=== PATIENT | female | born 1985 ===

== ENCOUNTER 2017-07-01 07:09 | Inpatient (IN) | payer BC ==
--- NOTE | 2017-07-01 07:29 | OBHP ---
Datetime: 07/01/2017 07:23 IP Adm Impression: Term, intrauterine IP Admit Plan: Admit to unit Admit Comment, IP Provider: @ 39 wks IUI c/o of lof last night, dneis any big gush, d nies vb, wth decreased movmenets x 1 week. Pt reprots ctx crampign pain every 10 min increasing intensity in frequency. 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: Denies hx of abnormla pap, fibroids, ovarian cyst, STI PMH: Umbilical hernia PSH: Denies FHX: non contributory SHX: negative etoh/tobacco/drugs MEDS: PNV A/P @ 39 wks GA IOL For oligohyramnios -admit to L+D -npo, ivf -admission labs -Cervisil -Cont toco and efm -pain manamgnet prn Pelvic Type - PN: Adequate Extremities - PN: Normal Abdomen - PN: Normal Back - PN: Normal Breast - PN: Not Done Lungs - PN: Normal Heart - PN: Normal Thyroid - PN: Not Done Neurologic - PN: Normal HEENT - PN: Normal General - PN: Normal Presentation-Admit: Vertex FHR - Baseline A Provider: 150 Membranes, Provider: Intact Contraction Comments Provider: irregular Comments, ACOG Physical Exam: negatiave pooling, nitrazine ferning Bedside US: vtx, LEYLA 4cm, BPP 6/8 Gestation - Est Wks by US: 39.0 IP Hx Assessment: The History has been Reviewed and is Current EGA AdmitDate IP: 39.0 Vital Signs Provider: Reviewed IP Indication for Induction: Oligohydramnios IP Chief Complaint: Suspected ruptured membranes NICHD Variability Prov Fetus A: Moderate 6-25bpm FHR Category Provider Fetus A: Category I NICHD Decel Fetus A IP Provider: None Dilatation, Provider: 0 Effacement, Provider: 30 Station, Provider: -3 Genitourinary Exam: Normal DTRs - PN: Normal
[2017-07-01] MEDS ORDERED: Lactated Ringer's 1,000 ML IV SCH (07:45)
[2017-07-01 08:17] LABS: BASO % 0.4 % (0.0-2.0); EOS # 0.2 K/uL (0.0-0.7); EOS % 1.4 % (0.0-4.0); HEMOGLOBIN 12.8 g/dL (11.0-16.0); LYMPH # 1.5 K/uL (1.0-4.3); LYMPH % 12.4 % (20.0-40.0); MEAN CELL VOLUME 89.4 fL (81.0-99.0); MEAN CORPUSCULAR HGB CONC 34.6 g/dL (33.0-37.0); MEAN PLATELET VOLUME 10.7 fL (7.2-11.7); MONO # 1.1 K/uL (0.0-0.8); MONO % 8.7 % (0.0-10.0); NEUT # 9.6 K/uL (1.8-7.0); NEUT % 77.1 % (50.0-75.0); NRBC % 0.1 % (0.0-2.0); RBC 4.14 Mil/uL (3.80-5.20); RED CELL DISTRIBUTION WIDTH 13.9 % (11.5-14.5); WHITE BLOOD COUNT 12.4 K/uL (4.8-10.8)
[2017-07-01] MEDS ORDERED: ePHEDrine 50 mg/ml Inj ONE (08:28)
[2017-07-01 08:38] LABS: SQUAMOUS EPITHIAL 1 /hpf (0-5); URINE BACTERIA OCC (<OCC); URINE BILIRUBIN NEGATIVE (NEGATIVE); URINE BLOOD NEGATIVE (NEGATIVE); URINE CLARITY Hazy (Clear); URINE COLOR Yellow (YELLOW); URINE GLUCOSE (UA) NORMAL (Normal); URINE LEUKOCYTE ESTERASE 1+ Leu/uL (Negative); URINE NITRATE NEGATIVE (NEGATIVE); URINE PROTEIN NEGATIVE (NEGATIVE); URINE UROBILINOGEN NORMAL mg/dL (0.2-1.0)
[2017-07-01] MEDS ORDERED: Bupivacaine HCl 0.25% PF (10 ml) Inj ONE (11:54)
[2017-07-01] MEDS ORDERED: Bupivacaine HCl/FentaNYL Cit 100 ML EPI ONE (11:55)
--- NOTE | 2017-07-01 14:54 | OBPN ---
Datetime: 07/01/2017 14:49 IP Progress Impression: Non-reassuring heart rate IP Progress Plan: Continue present management Membranes, Provider: Ruptured Contraction Comments Provider: q 2-5 m in FHR - Baseline A Provider: 150 Gestation - Est Wks by US: 39.0 Presentation-Admit: Vertex IP Progress Note Comment: pt seen and examiend after prolonged declienration x 5 minutes. pt dnies a ny pain, lof, vb, +FM, s/p epidural EFM: 150 mod kody/ prlonged 5 minute decerlation with spontanous reutrn to baseline 165pm Plan cervidil removed f/u vs, bp, temp IVH, Oxygen, Left lateral decumbituls position close observatoin FHR Category Provider Fetus A: Category II NICHD Variability Prov Fetus A: Moderate 6-25bpm Dilatation, Provider: 1 Effacement, Provider: 30 Station, Provider: -3 NICHD Decel Fetus A IP Provider: None Datetime: 07/01/2017 07:23 Vital Signs Provider: Reviewed
[2017-07-01] MEDS ORDERED: Oxytocin 30 UNIT 30 UNITS/500 ML BAG IV SCH (16:00)
[2017-07-01] MEDS ORDERED: Oxytocin 30 UNIT 30 UNITS/500 ML BAG IV ONE (16:10)
[2017-07-01] MEDS ORDERED: ceFAZolin IV 2 gm in Dextrose 2 GM/50 ML BAG IVPB ONE (18:20)
[2017-07-01] MEDS ORDERED: Sodium Citrate/Citric Acid 15 ml Sol ONE (18:21)
[2017-07-01] MEDS ORDERED: Sodium Citrate/Citric Acid 15 ml Sol PO ONE ×2 (18:30)
[2017-07-01] MEDS ORDERED: ceFAZolin IV 2 gm in Dextrose 2 GM/50 ML BAG IVPB SCH (18:30)
--- NOTE | 2017-07-01 18:31 | OBPN ---
Datetime: 07/01/2017 18:26 IP Progress Impression: Non-reassuring heart rate IP Informed Consent Obtain: Section Delivery IP Progress Plan: Deliver- Section Membranes, Provider: Ruptured FHR - Baseline A Provider: 170 Gestation - Est Wks by US: 39.0 Presentation-Admit: Vertex IP Progress Note Comment: pt seen and examiend, pt dnie ay pain ctx, +FM Pt reprots some vaignal discharge with small leakage that she thougt was discharbe ove rpats 1-2 d ays. Temp: 100.8 VS see above VE: 06/06/-3, vtx EFM: Cat II late decleration with tachcyardia TOCO: q 5 min Wes icn 6mu- discontinued A/P @ 39 wks GA with rodolfo II tracing remote from lou -pt félix ivh -teyonol -oxygen, left latearl decubtiur postion -r/b/a/i pltcs dw patietn not mtied to bleeding infection, consnt obtained -software quality automation engineer to or, antibisvc, goldman to graivty, scds, Vital Signs Provider: Reviewed Vital Signs Provider Details: 100.8 FHR Category Provider Fetus A: Category II NICHD Variability Prov Fetus A: Moderate 6-25bpm Dilatation, Provider: 1 Effacement, Provider: 30 Station, Provider: -3 NICHD Decel Fetus A IP Provider: Early
[2017-07-01] MEDS ORDERED: Sodium Bicarbonate (8.4%) 50 Meq Syringe ONE ×2 (18:32→18:38)
[2017-07-01] MEDS ORDERED: Oxytocin 10 Units/ml Inj ONE (19:33)
[2017-07-01] MEDS ORDERED: Midazolam 2 MG/2 ML VIAL ONE ×2 (19:36→19:45)
[2017-07-01] MEDS ORDERED: Propofol 10 mg/ml Inj (20 ML) ONE (19:54)
[2017-07-01] MEDS ORDERED: Ketamine 50 mg/ml Inj (10 ml) ONE (19:55)
--- NOTE | 2017-07-01 20:07 | OBDS ---
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 Babies in Womb: 1 (Annotations: Data stored by [facility] on behalf of user) Attempted: No Labor Anesthesia: Epidural LABOR INFORMATION Cervical Ripening Agents: Cervidil Other Ripening Agents: cervidal removed by dr appiah Oxytocin: Induction Group B Beta Strep: Negative Antibiotics # of Doses: 1 Antibiotics Time of Last Dose: 1830 Steroids Given: None Reason Steroids Not Administered: Not Applicable VAGINAL DELIVERY Episiotomy: None Laceration Extension: N/A Laceration Type: None CSECTION DELIVERY Primary Indication: Nonreassuring Status CSection Urgency: Emergency CSection Incidence: Primary Labor: Labor Elective: Nonelective CSection Incision: Lower Uterine Transverse BABY A INFORMATION Method of Delivery: Born in Route : No : N/A Forceps: N/A PRESENTATION/POSITION BABY A Presentation: Cephalic Cephalic Presentation: Vertex Vertex Position: Right Occipital Posterior Breech Presentation: N/A INFANT INFORMATION BABY A Gestational Age at Delivery: 39.0 Gestational Status: Term IDENTIFICATION/MEDS BABY A ID Band Number: [id number] ID Band Location: Left Leg; Left Arm Sensor Applied: Yes Sensor Number: [id number] Sensor Location : Cord Clamp WEIGHT/LENGTH BABY A Infant Birthweight (gms): 3115 Infant Weight (lb): 6 Infant Weight (oz): 14 Length Inches: 18.75 Infant Length cms: 47.6
[2017-07-01] MEDS ORDERED: Oxycodone/Acetaminophen 5/325 mg Tab PO PRN ×3 (20:10→21:00)
--- NOTE | 2017-07-01 20:10 | PCM.SURG1 ---
Surgeon's Initial Post Op Note - Surgeon's Notes Surgeon: Melissa Broines MD Service Crew Supervisor: Gerald Avina MD Type of Anesthesia: Other Anesthesia Administered By: Epidural Dr Hein Pre-Operative Diagnosis: Term Intrauterin , Category II tracing, remote from delivery Operative Findings: Live female infnat, apgars 9,9 weight of 6lbs 1 4ounces, normal appeairn guteurs, tubes and ovaries b/l. Pt with double tihgt nuchal and body x 1. pediatirican prsent for delivery. Dr Gerald Avina was surgical assistnat and present for entire case and essential in gainign entry, retraction , epxoures, holidng, bladder blade, helpign to deliveyr , closing all layers Post-Operative Diagnosis: same as above Operation Performed: Primary Low transverse cesearen section Specimen/Specimens Removed: placenta Estimated Blood Loss: EBL {In ML}: 800 Blood Products Given: N/A Drains Used: No Drains Post-Op Condition: Good Date of Surgery/Procedure: 07/01/17 Time of Surgery/Procedure: 19:30
[2017-07-01] MEDS ORDERED: HYDROmorphone 0.5 mg/0.5 ml ISec IVP PRN (20:32)
[2017-07-02] MEDS: ceFAZolin 1 GM in Sodium Chloride 0.9% 100 ML IVPB SCH ×3 (02:00→17:29)
--- NOTE | 2017-07-02 07:31 | OP ---
PROCEDURE DATE: 07/01/2017 SURGEON: Dr. Melissa Briones POLICE SHIFT COMMANDER: Gerald Avina MD TYPE OF ANESTHESIA: Epidural by Nirmal Mejia DO PREOPERATIVE DIAGNOSIS: Term intrauterine , category II tracing, remote from delivery. OPERATIVE FINDINGS: Live female infant, Apgars 9 and 9, weight is 6 pounds 14 ounces, normal-appearing uterus, tubes, and ovaries bilaterally. There was tight nuchal cord x2 and around body x1. Dr. Gerald Avina, the surgical services asst, was present for the entire case, and was essential in gaining entry, retraction, exposure, holding the bladder blade, delivering the infant, closing all layers. POSTOPERATIVE DIAGNOSIS: Term intrauterine , category II tracing, remote from delivery. OPERATION PERFORMED: Primary low transverse section. SPECIMEN REMOVED: Placenta. ESTIMATED BLOOD LOSS: 80 mL. BLOOD PRODUCTS: None. COMPLICATIONS: None. PROCEDURE: The patient is a 32-year-old G1, P0 at 39 weeks with oligohydramnios set with induction of labor, initially given Cervidil, had a 5-minute spontaneous decel, the Cervidil was then removed. The patient was 1 cm. Following that, Pitocin was then started after an hour, and the patient was started on epidural anesthesia and was noted to have prolonged decelerations with tachycardia. heart rate 100.8. Bedside sonogram showed a LEYLA of less than 1 and persistent category II despite infusion of Pitocin and giving IV hydration, oxygen, etc. Risks, benefits, alternatives, indications of primary section was discussed with the patient, consent was signed and was taken to the operating room. Patient had epidural anesthesia and once it was found to be adequate, the patient was placed on the operating table in the dorsal supine position with legs supported using stirrups. The patient was then prepped and draped in the usual sterile fashion. Time-out confirmed correct patient and correct procedure. The patient was given preoperative prophylactic antibiotic. A Pfannenstiel skin incision was made with a scalpel and carried down to the underlying layer of the fascia with the Bovie. The fascia was incised in the midline and the incision was extended laterally with the Bovie. The inferior aspect of the fascial incision was grasped with Allis and Norma clamps and the underlying rectus muscles dissected off bluntly. Attention was then turned to the inferior aspect in a similar fashion, which in a similar fashion was grasped with Allis and Norma clamps and the underlying rectus muscles were dissected off sharply. The rectus muscle was then bluntly in the midline. The peritoneum was identified and entered in the clear space. The incision was extended laterally and superiorly until there was good visualization of the bladder. The lower end of the [place] was then inserted. The vesicouterine peritoneum was incised with Metzenbaum scissors. A bladder flap was created digitally. The lower end of [place] was then re-inserted. The lower uterine segment was incised in a transverse fashion. Following this, the surgeon's hand entered the uterine cavity. Infant's head was delivered atraumatically. There was tight nuchal cord x2. Body was delivered and the cord was then reduced around the neck and the body. The nuchal cord was clamped and cut. Both oral and nasal passages of the baby were bulb suctioned. Umbilical cord was clamped and cut. Baby was handed off to the awaiting jockey agent. Cord blood and cord gases were collected and sent x2. The placenta was then delivered manually. The uterus was exteriorized while cleared of clots and debris and the uterine incision was repaired with 0-Vicryl in a running continuous locked fashion. A second layer of the same suture was used to close the uterus in a running imbricated manner. There were normal tubes and ovaries bilaterally. There was good hemostasis at the abdomen site. The uterus was then cleared off all clots and debris. The uterine incision was repaired with 0-Vicryl in a running continuous locked fashion. A second layer of the same suture was used to close the uterus in a running imbricated manner. There was normal tubes and ovaries. The uterus was then returned to the abdomen. The paracolic gutters were cleared of all clots and debris. There was good hemostasis at the uterine incision site. The peritoneum was reapproximated and closed with 0-chromic in a running continuous fashion. The rectus was reapproximated with 2-0 chromic in an interrupted manner. The fascia was reapproximated close with 0-Vicryl in a running cutaneous fashion. Subcutaneous layer was closed with 2-0 plain in an interrupted manner. The skin was reapproximated with 4-0 Monocryl in a running subcuticular fashion. At the end of the procedure, all needles, sponge, and instrument counts were noted to be correct x2. The patient tolerated the procedure well and was transferred to the recovery room in stable condition. Melissa Briones MD
[2017-07-02] MEDS ORDERED: Oxycodone/Acetaminophen 5/325 mg Tab ONE ×2 (08:42→12:53)
[2017-07-02] MEDS: Oxycodone/Acetaminophen 5/325 mg Tab PO PRN ×3 (08:42→20:30)
[2017-07-02 09:17] LABS: BASO % 0.2 % (0.0-2.0); EOS % 0.2 % (0.0-4.0); HEMOGLOBIN 11.5 g/dL (11.0-16.0); LYMPH # 1.4 K/uL (1.0-4.3); LYMPH % 8.7 % (20.0-40.0); MEAN CELL VOLUME 89.8 fL (81.0-99.0); MEAN CORPUSCULAR HEMOGLOBIN 30.8 pg (27.0-31.0); MEAN CORPUSCULAR HGB CONC 34.3 g/dL (33.0-37.0); MONO # 1.1 K/uL (0.0-0.8); MONO % 6.6 % (0.0-10.0); NEUT # 13.9 K/uL (1.8-7.0); NEUT % 84.3 % (50.0-75.0); PLATELET COUNT 136 K/uL (130-400); RBC 3.74 Mil/uL (3.80-5.20); RED CELL DISTRIBUTION WIDTH 14.4 % (11.5-14.5); WHITE BLOOD COUNT 16.5 K/uL (4.8-10.8)
--- NOTE | 2017-07-02 09:27 | OBPPN ---
Datetime: 07/02/2017 09:23 PP Pain Prov: Within normal limits PP Nausea Prov: Denies PP Flatus Prov: No PP BM Prov: No PP Breasts Prov: Normal PP Heart Prov: Normal PP Lungs Prov: Normal PP Abdomen/Uterus Prov: Normal PP Lochia Prov: Normal PP Vulva/Perineum Prov: Normal PP CVA Tenderness Prov: Normal PP Extremities Prov: Normal PP C/S Incision Prov: Normal PP Progress Prov: Normal PP Impression Prov: Normal progression PP Plan Prov: Continue present management PP Progress Note Prov: pt seen and examined and reports pain controlled withmedicatin. pt is tolera ting clear liquid diet without nausea, vomiting, ambuating, voiding, not passing flatus, denies any f ever, chills, cp, sob, lightheadness, headahces. pt is bottle and . VSS PE GEN NAD< AAO x 3 RESP: CTAB/L CVS: RRR< +S1/S2 ABD: Soft, NT/ND, +BS, no guarding, no rebound tendneren no rigidty, INCSION C/D/I FUNDUS: Firm, at level of umbilcus VE: Minimal lochia, non fouls smelling EXT: no calf tenderness, negative zaina's sign A/P s/p PLTCS POD #1 doing well -pain manamgnet -encourage breast feedign adn ambaution -cont current manamgnet -d/c goldman -out of bed with assistnce -abodminal binder, incentive spirometer Vital Signs Provider PP: Reviewed; Within Normal Limits
[2017-07-02] MEDS: Folic Acid/Ascorbic Acid/Ferrous Sulfate 1 Tab PO SCH (10:48)
[2017-07-02] MEDS: Simethicone 80 mg Chewtab PO SCH ×3 (10:48→22:09)
[2017-07-02 10:59] LABS: BANDS 9 % (0-2); BASOPHIL 1 % (0-2); LYMPHOCYTE 7 % (20-40); MONOCYTE 4 % (0-10); NEUTROPHIL 77 % (50-75); PLATELET ESTIMATE NORMAL (NORMAL); REACTIVE LYMPHOCYTES 2 % (0-0); TOTAL CELLS COUNTED 100
[2017-07-02] MEDS ORDERED: Oxycodone/Acetaminophen 5/325 mg Tab PO PRN (20:30)
[2017-07-03] MEDS: Oxycodone/Acetaminophen 5/325 mg Tab PO PRN ×5 (00:39→19:39)
[2017-07-03] MEDS: ceFAZolin 1 GM in Sodium Chloride 0.9% 100 ML IVPB SCH ×3 (01:25→17:52)
--- NOTE | 2017-07-03 07:00 | OBPPN ---
Datetime: 07/03/2017 06:57 PP Pain Prov: Within normal limits PP Nausea Prov: Denies PP Flatus Prov: Yes PP BM Prov: No PP Breasts Prov: Normal PP Heart Prov: Normal PP Lungs Prov: Normal PP Abdomen/Uterus Prov: Normal PP Lochia Prov: Normal PP Vulva/Perineum Prov: Normal PP CVA Tenderness Prov: Normal PP Extremities Prov: Normal PP C/S Incision Prov: Normal PP Progress Prov: Normal PP Impression Prov: Normal progression PP Plan Prov: Continue present management PP Progress Note Prov: pt seen and examined and reports pain controlled with medicatin. pt is tolera ting diet without nause, vomiting, ambuating, voiding, passing flatus, denies any fever, chills, cp, sob, lightheadness, headahces. pt is . VSS PE GEN NAD< AAO x 3 RESP: CTAB/L CVS: RRR, +S1/S2 ABD: Soft, NT/ND, +BS, no guarding, no rebound tendneren no rigidty, INCSION C/DI FUNDUS: FIrm, below level of umbilcus VE: Minimal lochia, non fouls smelling EXT: no calf tenderness, negative zaina's sign A/P s/p LTCS POD #2 doing well -pain manamgnet -encourage breast feedign adn ambaution -cont current manamgnet Vital Signs Provider PP: Reviewed; Within Normal Limits
[2017-07-03 08:18] LABS: BASO # 0.1 K/uL (0.0-0.2); BASO % 0.4 % (0.0-2.0); EOS # 0.2 K/uL (0.0-0.7); EOS % 1.5 % (0.0-4.0); HEMOGLOBIN 11.3 g/dL (11.0-16.0); LYMPH # 1.7 K/uL (1.0-4.3); LYMPH % 10.3 % (20.0-40.0); MEAN CORPUSCULAR HEMOGLOBIN 30.6 pg (27.0-31.0); MEAN CORPUSCULAR HGB CONC 34.4 g/dL (33.0-37.0); MEAN PLATELET VOLUME 9.9 fL (7.2-11.7); MONO % 6.4 % (0.0-10.0); NEUT # 13.1 K/uL (1.8-7.0); NEUT % 81.4 % (50.0-75.0); RBC 3.67 Mil/uL (3.80-5.20); RED CELL DISTRIBUTION WIDTH 14.4 % (11.5-14.5); WHITE BLOOD COUNT 16.1 K/uL (4.8-10.8)
[2017-07-03] MEDS: Folic Acid/Ascorbic Acid/Ferrous Sulfate 1 Tab PO SCH (09:23)
[2017-07-03] MEDS: Simethicone 80 mg Chewtab PO SCH ×4 (09:23→21:22)
[2017-07-03] MEDS ORDERED: ceFAZolin IV 2 gm in Dextrose 0 GM/0 ML BAG IVPB ONE (10:05)
[2017-07-03 16:19] VITALS: O2SAT 99
[2017-07-04] MEDS: Oxycodone/Acetaminophen 5/325 mg Tab PO PRN ×3 (00:42→13:24)
[2017-07-04] MEDS: ceFAZolin 1 GM in Sodium Chloride 0.9% 100 ML IVPB SCH ×2 (01:37→10:26)
[2017-07-04 09:35] VITALS: BP 103/69; RESP 18; TEMP 98.3
[2017-07-04] MEDS: Simethicone 80 mg Chewtab PO SCH ×2 (10:25→13:25)
[2017-07-04] MEDS: Folic Acid/Ascorbic Acid/Ferrous Sulfate 1 Tab PO SCH (10:26)
[2017-07-04] MEDS ORDERED: Measles, Mumps, and Rubella 0.5 ML VIAL SC ONE (11:00)
--- NOTE | 2017-07-04 17:33 | OBDCSUM ---
Datetime: 07/04/2017 12:22 Discharged to, Provider: Home Follow up at, Provider: Dr. Briones Disch Instr Activity: Normal activity Disch Instr Diet: Regular Discharge Instructions, Provider: Routine instructions given Discharge Diagnosis, Provider: Term Delivered Discharge Time: 07/04/2017 12:22 Follow up in weeks, Provider: 1 week Disch Referrals: None Contraception discussed, Prov: Yes Disch Activity Restrictions: No sexual activity; Nothing in vagina - [place], tampons, douche Contraception after Delivery: Not Planning to Use
--- NOTE | 2017-07-04 17:34 | OBPPN ---
Datetime: 07/04/2017 07:55 PP Pain Prov: Within normal limits PP Nausea Prov: Denies PP Flatus Prov: Yes PP BM Prov: No PP Heart Prov: Normal PP Lungs Prov: Normal PP Abdomen/Uterus Prov: Normal PP Lochia Prov: Normal PP Extremities Prov: Normal PP C/S Incision Prov: Normal PP Progress Prov: Normal PP Impression Prov: Normal progression PP Plan Prov: Continue present management; Discharge PP Progress Note Prov: Patient seen and examined at bedside. Per nursing no acute events overnight. Patient is doing well, pain is controlled. Lochia is mild. Ambulating and tolerating. Urinating witho ut difficulty. Passing flatus, no BM. Breast feeding. Denies headaches, dizziness, cp, palpitations, sob, urinary symptoms. VS: BP - 97/62 HR - 75 Temp - 98.4 Gen: AAOx3 Abd: Soft, appriopriately tender, fundus firm below umbilicus, incision c/d/i with steristrips Ext: No clubbing, cyanosis, edema; no calf tenderness Labs: 12.4>12.8/37.0<176 16.5>11.5/33.6<136 16.1>11.3/32.7<184 O negative Rubella equivocal A/P: 32 year old at 39w0d s/p PLTCD 2/2 Nonreassuring Status POD#3 -Stable, afebrile -Pain control: percocet and motrin prn -MMR equivocal: MMR to be given prior to discharge -Rh Negative: baby is Rh negative, no rhogam needed at this time -Encourage ambulation and hydration -Encourage and ISS use -Continue routine care -Anticipate d/c home today: F/U with Dr Briones within 1 week for incision check, pelvic rest x 6 we eks -Plan discussed with Dr Anselmo Giron DO PGY-1 agree with above pt seen and examined stable for dc rto 1 week precatuiong iven Vital Signs Provider PP: Reviewed
[2017-07-04 20:34] VITALS: PULSE 79
== END 2017-07-04 13:50 | disposition home or self-care (01) | DRG 766 ==
LOC: C.EROB 07:09 → C.4D 07:41 → C.4M 07-02 14:19
PROVIDERS: ADMIT Obstetrics & Gynecology; ATTEND Obstetrics & Gynecology
PROC: 10D00Z1 Extraction of Products of Conception, Low, Open Approach (ICD-10-PCS; principal; 2017-07-01)
PROC: 3E0P7VZ Introduction of Hormone into Female Reproductive, Via Natural or Artificial Opening (ICD-10-PCS; 2017-07-01)
PROC: 3E0234Z Introduction of Serum, Toxoid and Vaccine into Muscle, Percutaneous Approach (ICD-10-PCS; 2017-07-04)
DX: O41.03X0 Oligohydramnios, third trimester, not applicable or unspecified (principal); O36.8130 Decreased fetal movements, third trimester, not applicable or unspecified; O69.1XX0 Labor and delivery complicated by cord around neck, with compression, not applicable or unspecified; O76 Abnormality in fetal heart rate and rhythm complicating labor and delivery; Z37.0 Single live birth; Z3A.39 39 weeks gestation of pregnancy; Z23 Encounter for immunization